=== PATIENT | male | born 2000 | race Two or more races ===

== ENCOUNTER 2019-04-14 21:41 | Emergency (ER) | payer BC, MEDICAID ==
[~2019-04-14] VITALS: Ht 170.2 cm; Wt 63.0 kg
[2019-04-14] MEDS ORDERED: SODIUM CHLORIDE 0.9% 1,000 ML IV ONE (22:02)
[2019-04-14] MEDS ORDERED: MORPHINE SULFATE 4 MG/ML CPJ (NOT FOR IM USE) IV STA (22:02)
[2019-04-14] MEDS ORDERED: CEFAZOLIN 1000MG PREMIX 50 ML IV ONE (22:15)
[2019-04-14 22:32] LABS: BASOPHILS % 0.6 % (0.0-2.0); EOSINOPHILS % 4.5 % (0.0-5.0); HEMATOCRIT. 46.8 % (42.0-52.0); HEMOGLOBIN. 16.1 g/dL (14.0-18.0); LYMPHOCYTES % 31.3 % (20.0-50.0); MEAN CORPUSCULAR HEMOGLOBIN 32.4 pg (28.0-32.0); MEAN CORPUSCULAR VOLUME 94.5 fL (80.0-94.0); MEAN PLATELET VOLUME 9.2 fl (7.4-10.4); MONOCYTES % 6.5 % (2.0-8.0); NEUTROPHILS % 57.1 % (40.0-76.0); PLATELET 236 x1000/uL (130-400); RED BLOOD CELL COUNT 4.95 mill/uL (4.7-6.1); RED CELL DISTRIBUTION WIDTH 13.1 % (11.6-14.6)
[2019-04-14 22:37] LABS: CHLORIDE 105 mEq/L (98-107)
[2019-04-14 22:41] LABS: INR 1.1; PARTIAL THROMBOPLASTIN TIME 24.3 sec (23.4-31.0); PROTHROMBIN TIME 11.5 sec (9.6-11.0)
[2019-04-14] MEDS ORDERED: IOHEXOL-350 100 ML BOTTLE ONE (23:02)
[2019-04-15] MEDS ORDERED: MORPHINE SULFATE 4 MG/ML CPJ (NOT FOR IM USE) IV ONE
[2019-04-15] MEDS ORDERED: HYDROMORPHONE HCL/PF 2MG/ML CPJ IV ONE (01:45)
[2019-04-15 02:15] VITALS: BP 141/84
[2019-04-15] MEDS ORDERED: HYDROMORPHONE HCL/PF 2MG/ML CPJ IV SCH (02:30)
== END 2019-04-15 02:31 | disposition short-term general hospital (02) ==
LOC: ER 21:41
DX: S72.8X2 Other fracture of left femur (principal); W34.09XA Accidental discharge from other specified firearms, initial encounter; Y93.89 Activity, other specified; Y92.89 Other specified places as the place of occurrence of the external cause; Y99.8 Other external cause status; F17.290 Nicotine dependence, other tobacco product, uncomplicated; F12.10 Cannabis abuse, uncomplicated
CPT/HCPCS: 36415; 73706; 80053; 85025; 85610; 85730; 96365; 96375; 96376; 99285; J0690; J1170; J2270; J7030; L1830; Q9967; Z7610